=== PATIENT | female | born 1965 | race Two or more races ===

== ENCOUNTER 2021-07-14 12:15 | Emergency (ER) | payer OTHER ==
[~2021-07-14] VITALS: Ht 167.6 cm; Wt 54.4 kg
[~2021-07-14 12:15] MED LIST: LIPITOR20 MG PO; LOPRESSOR HCT 51 TAB PO; LOPRESSOR25 MG PO; NABUMETONE500 MG PO
[2021-07-14] MEDS ORDERED: ACTOS15 MG PO (12:43)
[2021-07-14] MEDS ORDERED: BENZONATATE100 MG PO (16:42)
[2021-07-14] MEDS ORDERED: PROMETH-CODEIN 65 ML PO (16:42)
== END 2021-07-14 16:54 | disposition home or self-care (01) ==
LOC: ER 12:15
DX: R00.2 Palpitations (principal); R07.89 Other chest pain; Z11.52 Encounter for screening for COVID-19

== ENCOUNTER 2021-09-06 08:53 | Outpatient (CLI) | payer OTHER ==
[~2021-09-06 08:53] MED LIST changes: +ACTOS15 MG PO; +BENZONATATE100 MG PO; +PROMETH-CODEIN 65 ML PO
== END 2021-09-06 12:29 | disposition home or self-care (01) ==
LOC: LAB 08:53
PROVIDERS: ATTEND Internal Medicine Cardiovascular Disease
DX: D64.9 Anemia, unspecified (principal); N39.0 Urinary tract infection, site not specified; R10.9 Unspecified abdominal pain; E03.9 Hypothyroidism, unspecified; E78.5 Hyperlipidemia, unspecified; E11.9 Type 2 diabetes mellitus without complications; R73.09 Other abnormal glucose; Z79.01 Long term (current) use of anticoagulants; I10 Essential (primary) hypertension; E78.2 Mixed hyperlipidemia

== ENCOUNTER 2021-10-19 13:08 | Outpatient (CLI) | payer OTHER | END 2021-10-19 13:23 | disposition home or self-care (01) | LOC: MAMO-SONO 13:08 | DX: N60.01 Solitary cyst of right breast (principal) ==

== ENCOUNTER → 2021-10-19 | Outpatient (CLI) | payer OTHER | END | disposition home or self-care (01) | LOC: MAMO-SONO 10-18 09:30 → NUCLEAR 11:34 → MAMO-SONO 12:30 | DX: M81.0 Age-related osteoporosis without current pathological fracture (principal); Z88.0 Allergy status to penicillin; Z88.1 Allergy status to other antibiotic agents; Z88.8 Allergy status to other drugs, medicaments and biological substances ==

== ENCOUNTER 2022-02-14 09:11 | Outpatient (CLI) | payer OTHER | END 2022-02-14 10:00 | disposition home or self-care (01) | LOC: LAB 09:11 | DX: E03.9 Hypothyroidism, unspecified (principal); E11.21 Type 2 diabetes mellitus with diabetic nephropathy; E78.49 Other hyperlipidemia; I11.9 Hypertensive heart disease without heart failure ==

== ENCOUNTER 2022-07-05 16:39 | Outpatient (CLI) | payer OTHER | END 2022-07-05 16:40 | disposition home or self-care (01) | LOC: LAB 16:39 | PROVIDERS: ATTEND Obstetrics & Gynecology | DX: Z20.828 Contact with and (suspected) exposure to other viral communicable diseases (principal); Z20.818 Contact with and (suspected) exposure to other bacterial communicable diseases ==

== ENCOUNTER 2022-11-25 07:57 | Outpatient (CLI) | payer OTHER | END 2022-11-25 08:00 | disposition home or self-care (01) | LOC: LAB 07:57 | DX: E03.9 Hypothyroidism, unspecified (principal); D50.9 Iron deficiency anemia, unspecified; E78.49 Other hyperlipidemia; I11.9 Hypertensive heart disease without heart failure; E11.9 Type 2 diabetes mellitus without complications; E11.51 Type 2 diabetes mellitus with diabetic peripheral angiopathy without gangrene ==

== ENCOUNTER 2023-08-17 08:28 | Outpatient (CLI) | payer OTHER ==
[2023-08-17 09:24] LABS: PH,URINE 5.5 (5.0-8.0); URINE APPEARANCE Cloudy; URINE BILIRRUBIN Negative (NEGATIVE); URINE BLOOD Negative; URINE COLOR Yellow; URINE GLUCOSE Negative (NEGATIVE); URINE LEUKOCYTE Negative; URINE NITRATE Negative; URINE PROTEIN Negative (NEGATIVE); URINE UROBILINOGEN 0.2 E.U./dl
[2023-08-17 09:27] LABS: URINE BACTERIA 2499.7 uL (0.0-1933); URINE EPITHELIAL CELLS 59.2 uL (0.0-38.8); URINE RBC 14.2 uL (0.0-20.8); URINE WBC 26.2 uL (0.0-23.2)
[2023-08-17 09:56] LABS: URINE MUCUS MODERATE
[2023-08-17 10:02] LABS: ALBUMIN 3.8 gm/dL (3.4-5.0); BILIRUBIN TOTAL 0.42 mg/dL (0.3-1.2); CALCIUM 9.3 mg/dL (8.5-10.1); CHOL HDL RATIO 2.9 (0-5.0); CREATININE SERUM 0.75 mg/dL (0.55-1.02); GFR 79.09; GLOBULINA 3.7 G/DL (2.4-3.5); POTASSIUM 4.07 mEq/L (3.5-5.1); TOTAL PROTEIN 7.5 gm/dL (6.4-8.2)
[2023-08-17 10:37] LABS: ob NEGATIVE (NEGATIVE)
== END 2023-08-17 10:28 | disposition home or self-care (01) ==
LOC: LAB 08:28
DX: I11.9 Hypertensive heart disease without heart failure (principal); E11.21 Type 2 diabetes mellitus with diabetic nephropathy; B58.9 Toxoplasmosis, unspecified

== ENCOUNTER 2023-08-17 08:59 | Outpatient (CLI) | payer OTHER | END 2023-08-17 09:04 | disposition home or self-care (01) | LOC: MAMO-SONO 08:59 | DX: D60.0 Chronic acquired pure red cell aplasia (principal); Z12.31 Encounter for screening mammogram for malignant neoplasm of breast ==

== ENCOUNTER 2024-05-03 08:44 | Outpatient (CLI) | payer OTHER ==
[2024-05-03 10:58] LABS: URINE APPEARANCE Clear; URINE BILIRRUBIN Negative (NEGATIVE); URINE BLOOD Negative; URINE COLOR Yellow; URINE KETONE Trace (NEGATIVE); URINE LEUKOCYTE Negative; URINE NITRATE Negative; URINE PROTEIN Negative (NEGATIVE); URINE UROBILINOGEN 0.2 E.U./dl
[2024-05-03 11:03] LABS: URINE EPITHELIAL CELLS 39.7 uL (0.0-38.8); URINE RBC 4.2 uL (0.0-20.8); URINE WBC 24.4 uL (0.0-23.2)
[2024-05-03 11:44] LABS: URINE CAST 0.61 uL (0.0-1.40); URINE GLUCOSE >=1000 MG/DL (NEGATIVE)
[2024-05-03 13:18] LABS: ANION GAP 8 (10.0-20.0); BLOOD UREA NITROGEN 14 mg/dL (7-18); BUN CREA RATIO 18 (7.0-25.0); CALCIUM 9.4 mg/dL (8.5-10.1); CARBON DIOXIDE 31 mEq/L (21-32); CHLORIDE 108 mmol/L (98-107); CHOL HDL RATIO 3.4 (0-5.0); CHOLESTEROL 158 mg/dL (0-200); CREATININE SERUM 0.77 mg/dL (0.55-1.02); GFR 76.46; GLUCOSE FASTING 114 mg/dL (65-100); HDL 46 mg/dl (40-60); LDL 90 mg/dl (0-130); OSMOLALITY SERUM 286 MOSM/KG (275-295); POTASSIUM 4.19 mEq/L (3.5-5.1); SODIUM 143 mmol/L (136-145); TRIGLYCERIDES 112 mg/dL (0-150); TSH 0.989 uIU/mL (0.358-3.74); VLDL 22 (0-39)
[2024-05-03 13:19] LABS: C-REACTIVE PROTEIN < 0.29 MG/DL (0.00-0.29)
== END 2024-05-03 08:50 | disposition home or self-care (01) ==
LOC: LAB 08:44
DX: I11.9 Hypertensive heart disease without heart failure (principal); E11.21 Type 2 diabetes mellitus with diabetic nephropathy; R86.1 Abnormal level of hormones in specimens from male genital organs; E07.89 Other specified disorders of thyroid

== ENCOUNTER 2024-10-03 07:59 | Outpatient (CLI) | payer OTHER | END 2024-10-03 08:01 | disposition home or self-care (01) | LOC: RAD 07:59 | DX: M79.671 Pain in right foot (principal); D60.0 Chronic acquired pure red cell aplasia; Z12.13 Encounter for screening for malignant neoplasm of small intestine ==

== ENCOUNTER → 2024-10-13 08:47 | Outpatient (CLI) | payer OTHER | END | disposition home or self-care (01) | LOC: NUCLEAR 08:47 | DX: I87.2 Venous insufficiency (chronic) (peripheral) (principal) ==